=== PATIENT | male | born 1965 | race Caucasian/White ===

== ENCOUNTER → 2022-02-01 | Outpatient (CLI) | payer OTHER ==
[~2022-02-01] MED LIST: AMLODIPINE BESY10 MG PO; ASPIRIN EC81 MG PO; ATORVASTATIN CA20 MG PO; BRILINTA 90 MG90 MG PO; COREG 12.5MG12.5 MG PO; DIABETA 5 MG TAB5 MG PO; FUROSEMIDE40 MG PO; HYDROCHLOROTHIA25 MG PO; IMDUR ER TAB 6060 MG PO; JANUVIA100 MG PO; LISINOPRIL40 MG PO; METFORMIN HCL1000 MG PO; NITROGLYCERIN0.4 MG SL; PIOGLITAZONE HC30 MG PO
== END ==
LOC: HEART CORB 01-28 09:30
DX: I25.10 Atherosclerotic heart disease of native coronary artery without angina pectoris (principal); R07.2 Precordial pain; R06.02 Shortness of breath; I11.0 Hypertensive heart disease with heart failure; I50.32 Chronic diastolic (congestive) heart failure; E11.9 Type 2 diabetes mellitus without complications; R94.31 Abnormal electrocardiogram [ECG] [EKG]; I25.2 Old myocardial infarction; Z95.5 Presence of coronary angioplasty implant and graft
CPT/HCPCS: 78452; A9502; J2785